=== PATIENT | male | born 1980 | race African-American/Black ===

== ENCOUNTER 2019-04-27 10:15 | Emergency (ER) | payer MEDICAID ==
[~2019-04-27] VITALS: Ht 175.3 cm; Wt 99.3 kg
--- NOTE | 2019-04-27 10:26 | NUR ---
PT TO ROOM FROM TRIAGE, GAIT STEADY.
[2019-04-27] MEDS ORDERED: SODIUM CHLORIDE FLUSH 10ML SYR IVF ONE (10:30)
[2019-04-27 10:47] LABS: BASOPHILS # (AUTO) 0.03 x10^3/uL (0-0.1); BASOPHILS % (AUTO) 0 % (0-1); EOSINOPHILS # (AUTO) 0.09 x10^3/uL (0-0.4); EOSINOPHILS % (AUTO) 1 % (1-7); LYMPHOCYTES # (AUTO) 2.11 x10^3/uL (1-3.4); LYMPHOCYTES % (AUTO) 22 % (22-44); MD NO; MEAN CORPUSCULAR HEMOGLOBIN 33.8 pg (27.5-34.5); MEAN CORPUSCULAR HGB CONC 33.8 g/dL (33.2-36.2); MEAN PLATELET VOLUME 7.6 fL (7.4-10.4); MONOCYTES # (AUTO) 0.48 x10^3/uL (0.2-0.8); MONOCYTES % (AUTO) 5 % (2-9); NEUTROPHILS # (AUTO) 7.11 x10^3/uL (1.8-6.8); NEUTROPHILS % (AUTO) 72 % (42-75); PLATELET COUNT 284 x10^3/uL (130-400); RED BLOOD COUNT 5.06 x10^6/uL (4.38-5.82); RED CELL DISTRIBUTION WIDTH 12.1 % (9.4-14.8)
[2019-04-27 10:56] LABS: INTERNATIONAL NORMALIZED RATIO 0.96 (0.93-1.1); PROTHROMBIN TIME 10.2 Seconds (9.6-11.5)
[2019-04-27 10:59] LABS: ALANINE AMINOTRANSFERASE 23 U/L (12-78); ALBUMIN 3.7 g/dL (3.4-5.0); ANION GAP 3 mmol/L (5-15); CALCIUM 8.6 mg/dL (8.5-10.1); CHLORIDE 106 mmol/L (98-107); CREATININE 1.25 mg/dL (0.7-1.3)
[2019-04-27 11:01] LABS: ALKALINE PHOSPHATASE 82 U/L (45-117); BILIRUBIN,TOTAL 0.5 mg/dL (0.2-1.0); TOTAL PROTEIN 8.1 g/dL (6.4-8.2)
--- NOTE | 2019-04-27 11:01 | NUR ---
THIS IS A 38 YO M W/ C/O BRIGHT RED BLOOD IN STOOL SINCE 04/11/19. PT REPORTS GENERAL ABD CRAMPING. DENIES N/V. PIV STARTED. PT RESTING ON [employer] W/ CALL LIGHT IN REACH. AWAITING RAD.
--- NOTE | 2019-04-27 11:21 | NUR ---
PT TO CT.
--- NOTE | 2019-04-27 11:26 | NUR ---
PT AMBULATED TO THE BR W/ A STEADY GAIT.
[2019-04-27] MEDS ORDERED: OMNIPAQUE 350 MG/ML, 100ML BOTTLE ONE (11:32)
[2019-04-27 11:55] VITALS: BP 143/87
--- NOTE | 2019-04-27 11:55 | NUR ---
PT RESTING IN [facility]. AWAITING LAB RESULTS. NO NEEDS AT THIS TIME.
== END 2019-04-27 12:30 | disposition home or self-care (01) ==
LOC: ED 12:24
DX: K62.5 Hemorrhage of anus and rectum (principal)
CPT/HCPCS: 36415; 74177; 80053; 85025; 85610; 99285; Q9967